=== PATIENT | male | born 1975 | race Caucasian/White ===

== ENCOUNTER 2019-09-16 07:15 | Emergency (ER) | payer SELFPAY ==
--- NOTE | ~2019-09-16 | CT_ITS ---
EXAMINATION: CT abdomen pelvis w con EXAM DATE: 09/16/2019 08:57 INDICATION: Nausea, upper abdominal pain. TECHNIQUE: Spiral CT of the abdomen and pelvis was performed following intravenous injection of 100 m L Omnipaque 350. Axial, coronal and sagittal images were reviewed. The dose-length product (DLP) fo r this examination was 353.42 mGy-cm. The exposure was tailored according to patient size (auto mA e xposure control), and iterative reconstruction (ASIR) was used as additional dose reduction technique . Comparison is made to prior examination from 11/15/2016. FINDINGS: There is a left adrenal nodule measuring 2.1 x 1.6 cm (was 1.8 x 1.3 cm in 2017, moderate s tenosis of the growth). Statistically most likely adenoma but not meeting density criteria on this ex amination. The liver, spleen, adrenal glands and pancreas are otherwise unremarkable. Gallbladder i s unremarkable. No biliary obstruction. Portal and splenic veins are patent. Kidneys enhance symme trically. There is no hydronephrosis. The prostate is unremarkable. The bladder is unremarkable. There is no retroperitoneal or pelvic lymphadenopathy. The appendix is normal. The stomach and small bowel are unremarkable. There is expected amount of c olonic stool. No free intraperitoneal gas. The heart is normal in size. There are no pericardial or pleural effusions. The lung bases are unremarkable. There are no osteoblastic or osteolytic les ions identified. IMPRESSION: 1. No acute intra-abdominal findings. 2. Left adrenal nodule, modest interval increase compared to 2017. Statistically most likely adenoma but consider follow-up nonemergent MR abdomen. Reviewed, dictated and finalized at location B. IMPRESSION: 1. No acute intra-abdominal findings. 2. Left adrenal nodule, modest interval increase compared to 2017. Statistical ly most likely adenoma but consider follow-up nonemergent MR abdomen.
[2019-09-16 07:19] VITALS: BP 112/68; PULSE 80; RESP 16; TEMP 36.8; O2SAT 100
[2019-09-16 07:40] LABS: Basophils Percent Auto 0.7 % (0.2-1.2); Eosinophils Percent Auto 0.5 % (0-4.4); Hemoglobin 15.7 g/dL (14.0-18.0); Immature Granulocyte Absolute 0.03 K/mm3 (0.00-0.031); Immature Granulocyte Percent A 0.5 % (0-0.5); Lymphocytes Absolute Auto 1.17 K/mm3 (0.9-3.2); Lymphocytes Percent Auto 20.6 % (18.3-44.2); Mean Corpuscular HGB Conc 34.1 g/dl (32-36); Mean Corpuscular Hemoglobin 29.6 pg (26-34); Mean Corpuscular Volume 86.8 fl (80-100); Mean Platelet Volume 10.1 fl (7.4-10.4); Monocytes Absolute Auto 0.8 K/mm3 (0.1-0.6); Monocytes Percent Auto 13.5 % (2.6-8.5); Neutrophils Absolute Auto 3.7 K/mm3 (1.3-6.7); Neutrophils Percent Auto 64.2 % (45.5-73.1); Platelet Count Result 151 k/mm3 (150-375); Red Cell Distribution Width 13.2 % (11.5-14.5); White Blood Count 5.7 K/mm3 (4.5-10.0)
[2019-09-16 07:51] LABS: Alanine Aminotransferase 32 U/L (4-50); Albumin Level 4.2 g/dL (3.5-5.1); Alkaline Phosphatase 78 U/L (38-126); Aspartate Amino Transferase 33 U/L (17-59); Bilirubin,Total 0.5 mg/dL (0.2-1.3); Blood Urea Nitrogen 11 mg/dL (9-20); Calcium 9.2 mg/dL (8.4-10.2); Carbon Dioxide 28 mmol/L (22-30); Chloride 102 mmol/L (98-107); Estimated CRCL calculation 115 ml/min; Estimated Glomerular Filt Rate > 60; Glucose 111 mg/dL (75-110); Lipase 59 U/L (23-300); Potassium 3.7 mmol/L (3.4-5.0); Sodium 134 mmol/L (137-145)
[2019-09-16] MEDS: ONDANSETRON INJ 4 MG/2 ML VIAL IV PUSH (08:31)
[2019-09-16] MEDS: MORPHINE SULFATE 4 MG/ML INJ IV PUSH (08:32)
[2019-09-16] MEDS: SODIUM CHLORIDE 0.9% IV 1,000 ML 999 ML IV CONT (08:32)
[2019-09-16 08:40] LABS: Add Urine Microscopic? YES; Appearance Urine Clear (Clear); Bacteria Urine Trace /hpf; Bilirubin Urine Negative (Negative); Blood Urine Negative (Negative); Color Urine Yellow (Yellow); Glucose Urine UA Negative (Negative); Ketones Urine Trace mg/dL (Negative); Leukocyte Esterase Ur Negative LEU/UL (Negative); Mucus Urine Heavy /lpf; Nitrate Urine Negative (Negative); Protein Urine 1+ mg/dL (Negative); RBC Urine 0-2 /hpf (0-2); Squamous Epithelial Cell Urine Rare /hpf (Few); WBC Urine 0-3 /hpf
[2019-09-16 08:42] LABS: Specific Grav Ur 1.031 (1.001-1.035)
[2019-09-16] MEDS: BELLADONNA ALK/PHENOB ELIX 10 ML, MAG HYDROX/ALUMINUM HYD/SIMETH 30 ML, LIDOCAINE HCL 2... PO (09:40)
--- NOTE | 2019-09-16 10:20 | ED.NAVMDI ---
HPI - Nausea/Vomiting/Diarrhea General Chief complaint: Nausea/Vomiting/Diarrhea Stated complaint: N/V/D ABD PAIN Time Seen by Provider: 09/16/19 07:42 History of Present Illness HPI Narrative: Patient is a 43-year-old male who presents the ER with epigastric discomfort for the last 4 days. Cramping in nature. Associated with burning going into his chest. Mild nausea no vomiting. +Diarrhea. Has not found any aggravating alleviating factors but has not been eating due to discomfort. No history of biliary disease. Denies significant alcohol ingestion to cause pain. Related Data Allergies Allergy/AdvReac Type Severity Reaction Status Date / Time acetaminophen AdvReac Intermediate ABD. PAIN Verified 09/16/19 07:26 Review of Systems Review of Systems: All systems reviewed & are unremarkable except as noted in HPI and below Constitutional: Constitutional: Denies chills, Denies fever(s) and Reports weakness ENT: Denies nasal congestion and Denies sore throat Cardiovascular: Cardiovascular: Denies chest pain and Denies radiating jaw, neck or arm pain Gastrointestinal: Gastrointestinal: Reports abdominal pain, Reports heartburn, Reports diarrhea, Reports nausea and Denies vomiting PMFSH Past Medical History Medical History (Updated 09/16/19 @ 10:24 by Lalito Cronin MD) No pertinent past medical history Surgical History Surgical History (Updated 09/16/19 @ 10:22 by Lalito Cronin MD) No pertinent past surgical history Social History Social History Smoking status: Never smoker Alcohol intake: current Gender identity (if verbalized by the patient): Male Exam Narrative: Exam Narrative: GENERAL: Well-appearing, well-nourished, and in no acute distress. HEAD: Normocephalic, atraumatic. ENT: Mucous membranes moist. CHEST: Clear to auscultation. No respiratory distress. HEART: Regular rate and rhythm. Normal peripheral pulses. ABDOMEN: Soft, tender palpation epigastrium with guarding, nondistended. EXTREMITIES: Normal range of motion. No edema. SKIN: Warm, dry, no rash. NEURO: Alert and oriented x3. Course Course Emergency Course: Markedly improved symptoms with GI cocktail. Unremarkable work-up. Discharge home with scheduled PPI and follow-up with PCP/GI. Vital Signs Vital signs: Vital Signs Temperature 98.2 F 09/16/19 07:19 Pulse Rate 80 09/16/19 07:19 Respiratory Rate 16 09/16/19 07:19 Blood Pressure 112/68 09/16/19 07:19 Pulse Oximetry 100 09/16/19 07:19 Temperature 98.2 F 09/16/19 07:19 Pulse Rate 80 09/16/19 07:19 Respiratory Rate 16 09/16/19 07:19 Blood Pressure 112/68 09/16/19 07:19 Pulse Oximetry 100 09/16/19 07:19 MDM - Nausea/Vomiting/Diarrhea Lab Data Result diagrams: 09/16/19 07:32 09/16/19 07:32 Labs: Lab Results 09/16/19 09/16/19 09/16/19 Range/Units 07:32 07:32 08:32 WBC 5.7 (4.5-10.0) K/mm3 RBC 5.30 (4.6-6.20) M/mm3 Hgb 15.7 (14.0-18.0) g/dL Hct 46.0 (42.0-52.0) % MCV 86.8 (80-100) fl MCH 29.6 (26-34) pg MCHC 34.1 (32-36) g/dl RDW 13.2 (11.5-14.5) % Plt Count 151 (150-375) k/mm3 MPV 10.1 (7.4-10.4) fl Immature Gran % (Auto) 0.5 (0-0.5) % Neut % (Auto) 64.2 (45.5-73.1) % Lymph % (Auto) 20.6 (18.3-44.2) % Mchenry % (Auto) 13.5 H (2.6-8.5) % Eos % (Auto) 0.5 (0-4.4) % Baso % (Auto) 0.7 (0.2-1.2) % Lymph # (Auto) 1.17 (0.9-3.2) K/mm3 Mchenry # (Auto) 0.8 H (0.1-0.6) K/mm3 Eos # (Auto) 0.0 (0-0.3) K/mm3 Baso # (Auto) 0.0 (0.0-0.1) K/mm3 Abs Immat Gran (auto) 0.03 (0.00-0.031) K/mm3 Absolute Neuts (auto) 3.7 (1.3-6.7) K/mm3 Absolute Nucleated RBC 0.0 (0.0-0.012) K/mm3 Nucleated RBC % 0.0 (0.0-0.2) % Sodium 134 L (137-145) mmol/L Potassium 3.7 (3.4-5.0) mmol/L Chloride 102 (98-107) mmol/L Carbon Dioxide 28 (22-30) mmol/L BUN 11 (9-20) mg/dL Creatinine 0.90
[2019-09-16 11:15] VITALS: BP 116/73; PULSE 88; RESP 17; O2SAT 98
== END 2019-09-16 11:16 | disposition home or self-care (01) ==
PROVIDERS: Emergency Provider Emergency Medicine
DX: K29.70 Gastritis, unspecified, without bleeding (principal); E27.9 Disorder of adrenal gland, unspecified
CPT/HCPCS: 36415; 74177; 80053; 81001; 83690; 85025; 96361; 96374; 96375; 99284; A9270; J2270; J2405; J7030; Q9967

== ENCOUNTER 2021-01-25 10:08 | Emergency (ER) | payer SELFPAY ==
[2021-01-25 10:15] VITALS: BP 152/80; PULSE 82; RESP 16; TEMP 36.5; O2SAT 100
--- NOTE | 2021-01-25 10:27 | ED.ABDPAIN ---
HPI - Abdominal Pain General Chief Complaint: Abdominal Pain Stated Complaint: ABD PAIN/CAN'T SLEEP/CHILLS/DIARRHEA Source: patient and RN notes reviewed Mode of arrival: ambulatory History of Present Illness HPI narrative: This is a 45-year-old male that presented to urgent care today with complaints of cramping diarrhea and constipation nausea with no vomiting and abdominal pain that he has been experiencing for 1 week patient notes that he was unable to sleep due to the pain. Patient has not done anything at home to relieve his symptoms he did note that he has a history of perforated bowel back in 2018 caused by alcohol and medication. He also was at [facility] back in 09/2019 and diagnosed with gastritis. He will be transferred to [facility] Dr. Oneil excepting report given to Nandini BUSTAMANTE. Patient refused transportation via EMS MD elicited complaint: abdominal pain (Right lower quadrant) Pertinent past history: gastritis and other (Perforated bowel back in 2018) Related Data Allergies Allergy/AdvReac Type Severity Reaction Status Date / Time acetaminophen AdvReac Intermediate ABD. PAIN Verified 09/16/19 07:26 Review of Systems Review of Systems: A 14 organ system Review of Systems was performed and pertinent positives included in the HPI, otherwise remaining ROS is negative. [facility] Past Medical History Medical History No pertinent past medical history Surgical History Surgical History No pertinent past surgical history Family History Family History (Updated 01/25/21 @ 10:28 by KAMALJIT Mcdaniels) Other Family history non-contributory Social History Social History Smoking status: Never smoker Alcohol intake: current Gender identity (if verbalized by the patient): Male Exam Narrative: GENERAL: This is a well-nourished, well-developed patient, in no apparent distress. HEAD: normocephalic, atraumatic. EYES: PERRL. Sclera clear/white. Vision is grossly intact. EARS: External ears normal, auditory canals clear and without drainage, TMs normal without perforation. Hearing grossly intact. NOSE: External nose normal with no obvious nasal discharge, nares without redness, no rhinorrhea. THROAT: Mucous membranes moist, posterior pharynx clear. NECK: Neck supple, non-tender without lymphadenopathy, masses or thyromegaly. CARDIOVASCULAR: Regular rate and rhythm without murmurs, gallops, or rubs. RESPIRATORY: Clear to auscultation. Breath sounds equal bilaterally. No wheezes, rales, or rhonchi. GASTROINTESTINAL: Abdomen soft, tenderness to the right lower quadrant nondistended. Bowel sounds are active. No hepato-splenomegaly, or palpable masses. With guarding the left lower quadrant. SKIN: warm, intact with no suspicious lesions or rash, good texture and turgor. NEURO: awake, alert, and oriented to person, place and time. There were no obvious focal neurologic abnormalities. Steady gait EXTREMITIES: Normal range of motion. No edema. No calf tenderness. Negative Homans sign bilaterally. BACK: Nontender without deformity or crepitance. No flank tenderness. Course Course Emergency Course: Patient will be sent to [place] ED accepting physician Dr. Oneil Vital Signs Vital signs: Vital Signs Temperature 97.7 F 01/25/21 10:15 Pulse Rate 82 01/25/21 10:15 Respiratory Rate 16 01/25/21 10:15 Blood Pressure 152/80 H 01/25/21 10:15 Pulse Oximetry 100 01/25/21 10:15 Temperature 97.7 F 01/25/21 10:15 Pulse Rate 82 01/25/21 10:15 Respiratory Rate 16 01/25/21 10:15 Blood Pressure 152/80 H 01/25/21 10:15 Pulse Oximetry 100 01/25/21 10:15 Transfer Transfered to: [place] Accepting physician: Dr. Oneil MDM - Abdominal Pain Differential Diagnosis Differential diagnosis: Likely abdominal pain, acute a
== END 2021-01-25 10:32 | disposition short-term general hospital (02) ==
PROVIDERS: Emergency Provider Nurse Practitioner
DX: R10.31 Right lower quadrant pain (principal)
CPT/HCPCS: 99212; G0463

== ENCOUNTER 2021-01-25 10:46 | Emergency (ER) | payer SELFPAY ==
--- NOTE | ~2021-01-25 | CT_ITS ---
EXAMINATION: CT abdomen pelvis w con INDICATION: Abdominal pain, history of perforated ulcer TECHNIQUE: Computed tomographic images of the abdomen and pelvis were obtained after the administrati on of 100 cc of Omnipaque 350 intravenous contrast. The dose-length product (DLP) was 603.53 mGy-cm. Automated exposure control and iterative reconstruction technique were employed. COMPARISON: 09/16/2019 FINDINGS: The lung bases are clear. The heart size is normal. A stable 6 mm lesion of the right hepat ic lobe with peripheral enhancement likely reflects a hemangioma. The spleen, pancreas, gallbladder, and right adrenal gland are normal. A stable 2 cm mass of the left adrenal gland likely reflects an a denoma. The kidneys are unremarkable. No pathologically enlarged abdominal or pelvic lymph nodes are identified. There is no free intraperitoneal gas or evidence of bowel obstruction. The appendix is no rmal. There are multiple tiny fat-containing midline epigastric hernias. IMPRESSION: 1. No CT correlate for the patient's symptoms. Reviewed, dictated and finalized at location B. [employer]
[2021-01-25 11:09] VITALS: BP 123/78; PULSE 77; RESP 18; TEMP 36.7; O2SAT 100
[2021-01-25 11:27] LABS: Basophils Absolute Auto 0.1 K/mm3 (0.0-0.1); Basophils Percent Auto 0.5 % (0.2-1.2); Eosinophils Absolute Auto 0.1 K/mm3 (0-0.3); Eosinophils Percent Auto 0.5 % (0-4.4); Hematocrit 43.5 % (42.0-52.0); Hemoglobin 15.1 g/dL (14.0-18.0); Immature Granulocyte Absolute 0.04 K/mm3 (0.00-0.031); Immature Granulocyte Percent A 0.3 % (0-0.5); Lymphocytes Absolute Auto 1.82 K/mm3 (0.9-3.2); Lymphocytes Percent Auto 13.4 % (18.3-44.2); Mean Corpuscular HGB Conc 34.7 g/dl (32-36); Mean Corpuscular Hemoglobin 30.4 pg (26-34); Mean Corpuscular Volume 87.7 fl (80-100); Mean Platelet Volume 10.4 fl (7.4-10.4); Monocytes Absolute Auto 1.1 K/mm3 (0.1-0.6); Monocytes Percent Auto 7.8 % (2.6-8.5); Neutrophils Absolute Auto 10.6 K/mm3 (1.3-6.7); Neutrophils Percent Auto 77.5 % (45.5-73.1); Platelet Count Result 214 k/mm3 (150-375); Red Blood Count 4.96 M/mm3 (4.6-6.20); White Blood Count 13.6 K/mm3 (4.5-10.0)
[2021-01-25 11:38] LABS: Alanine Aminotransferase 40 U/L (4-50); Albumin Level 4.7 g/dL (3.5-5.1); Alkaline Phosphatase 70 U/L (38-126); Anion Gap 7 mmol/L (8-16); Aspartate Amino Transferase 30 U/L (17-59); Bilirubin,Total 0.6 mg/dL (0.2-1.3); Blood Urea Nitrogen 19 mg/dL (9-20); Calcium 9.4 mg/dL (8.4-10.2); Carbon Dioxide 29 mmol/L (22-30); Chloride 103 mmol/L (98-107); Estimated CRCL calculation 113 ml/min; Estimated Glomerular Filt Rate > 60; Glucose 107 mg/dL (65-110); Lipase 63 U/L (23-300); Potassium 4.3 mmol/L (3.4-5.0); Sodium 139 mmol/L (137-145)
--- NOTE | 2021-01-25 12:15 | PC.NURSE ---
Pt off floor to CT scan
--- NOTE | 2021-01-25 12:24 | ED.ABDPAIN ---
HPI - Abdominal Pain General Chief Complaint: Abdominal Pain Stated Complaint: abd pain Time Seen by Provider: 01/25/21 11:30 Source: patient History of Present Illness HPI narrative: Patient presents with abdominal pain. Reports he had abdominal pain for the past 10 days getting progressively worse associated with nausea constipation and diarrhea. Pain is crampy, constant, worse in the upper abdomen, no radiation, no clear aggravating or alleviating factors. He was seen in urgent care and referred to the ER for further evaluation. He is unsure if he has had fevers he does report hot flashes. Denies known sick contacts no recent antibiotics. Related Data Allergies Allergy/AdvReac Type Severity Reaction Status Date / Time acetaminophen AdvReac Intermediate ABD. PAIN Verified 01/25/21 11:33 Review of Systems Review of Systems: CONSTITUTIONAL: Denies fever, chills, or sweats. EYES: Denies visual changes, redness, or discharge. ENT: Denies rhinorrhea, congestion, sore throat, or otalgia. CARDIOVASCULAR: Denies chest pain, palpitations, or edema. RESPIRATORY: Denies cough or dyspnea. GASTROINTESTINAL: Reports abdominal pain nausea constipation and diarrhea GENITOURINARY: Denies dysuria or hematuria. SKIN: Denies rash or itching. MUSCULOSKELETAL: Denies back pain, joint pain, or myalgia. NEUROLOGIC: Denies headache, numbness, dizziness, or weakness. PSYCHIATRIC: Denies anxiety or depression. All systems reviewed & are unremarkable except as noted in HPI and below PMFSH Past Medical History Medical History No pertinent past medical history Surgical History Surgical History No pertinent past surgical history Family History Family History Other Family history non-contributory Social History Social History Smoking status: Never smoker Alcohol intake: current Gender identity (if verbalized by the patient): Male Exam Narrative: GENERAL: Well-appearing, well-nourished, and in no acute distress. HEAD: Normocephalic, atraumatic. EYES: PERRLA and EOMI. ENT: Nares clear, no rhinorrhea or epistaxis. Mucous membranes moist. NECK: Supple. No masses. No JVD CHEST: Clear to auscultation. No respiratory distress. No wheezes rales or rhonchi HEART: Regular rate and rhythm. No murmur heard. Normal peripheral pulses. ABDOMEN: Moderate tenderness in the epigastric area without rebound or guarding soft, nondistended, normal active bowel sounds. EXTREMITIES: Normal range of motion. No edema. SKIN: Warm, dry, no rash. NEURO: No focal deficits. Alert and oriented x3. PSYCH: Normal mood and affect. Course Reevaluation(s) Reevaluation #1: Patient reports feeling improved results and plan reviewed with patient. Patient comfortable with outpatient plan Date: 01/25/21 Time: 13:09 Vital Signs Vital signs: Vital Signs Temperature 36.7 C 01/25/21 11:09 Pulse Rate 77 01/25/21 11:09 Respiratory Rate 18 01/25/21 11:09 Blood Pressure 123/78 01/25/21 11:09 Pulse Oximetry 100 01/25/21 11:09 Temperature 36.6 C 01/25/21 13:29 Pulse Rate 74 01/25/21 13:29 Respiratory Rate 16 01/25/21 13:29 Blood Pressure 132/91 H 01/25/21 13:29 Pulse Oximetry 98 01/25/21 13:29 MDM - Abdominal Pain MDM Narrative Medical decision making narrative: H&P as above, vss, pt looks clinically well, exam with epigastric pain, labs with elevated white count otherwise clinically unremarkable, img unremarkable for acute process, additional labs/img considered, symptomatic relief available as needed, on reevaluation pt continues to looks clinically well. Suspect gastroenteritis, dns severe sepsis, bowel obstruction, perforation, appendicitis, pancreatitis. plan to tx/monitor as op w/ pcm f/u findings/plan discussed with p
[2021-01-25 12:25] LABS: Add Urine Microscopic? YES; Appearance Urine Clear (Clear); Bacteria Urine Trace /hpf; Bilirubin Urine Negative (Negative); Blood Urine Negative (Negative); Color Urine Yellow (Yellow); Glucose Urine UA Negative (Negative); Ketones Urine Negative (Negative); Leukocyte Esterase Ur Negative LEU/UL (Negative); Mucus Urine Heavy /lpf; Nitrate Urine Negative (Negative); Protein Urine 1+ mg/dL (Negative); RBC Urine 0-2 /hpf (0-2); Squamous Epithelial Cell Urine Rare /hpf (Few); Urobilinogen Urine Negative mg/dL (<2.0); WBC Urine 0-3 /hpf
[2021-01-25] MEDS: LIDOCAINE HCL 2% VISC SOLN 15 ML UDC 20 ML PO (12:27)
[2021-01-25] MEDS: SODIUM CHLORIDE 0.9% IV 1,000 ML 999 ML IV CONT (12:27)
[2021-01-25] MEDS: ONDANSETRON INJ 4 MG/2 ML VIAL IV PUSH (12:27)
[2021-01-25] MEDS: MAG HYDROX/AL HYDROX/SIMETH 30 ML UDC PO (12:27)
[2021-01-25 12:47] LABS: Specific Grav Ur 1.031 (1.001-1.035)
[2021-01-25 13:29] VITALS: BP 132/91; PULSE 74; RESP 16; TEMP 36.6; O2SAT 98
== END 2021-01-25 13:30 | disposition home or self-care (01) ==
PROVIDERS: Emergency Provider Emergency Medicine
DX: R10.9 Unspecified abdominal pain (principal); R19.7 Diarrhea, unspecified; R11.0 Nausea
CPT/HCPCS: 36415; 74177; 80053; 81001; 83690; 85025; 96361; 96374; 99284; A9270; J2405; J7030; Q9967

== ENCOUNTER 2023-10-25 20:47 | Emergency (ER) | payer BC, SELFPAY ==
--- NOTE | ~2023-10-25 | XR_ITS ---
XR shoulder LT min 2V Ordering provider: Nandini Bryant PA-C History: . injured shoulder sliding into base this evening . Comparison: None. FINDINGS: BONES: No acute fracture or dislocation. Lucency is seen adjacent to the coronoid process in the scap meron. Follow-up advised. JOINT SPACES: The acromioclavicular joint is normal. The glenohumeral joint is normal. SOFT TISSUES: Normal. IMPRESSION: No acute osseous abnormality left shoulder. Lucency seen in the scapula. This is most likely cyst. Follow-up advised. Reviewed, dictated and finalized at location A.
[2023-10-25 21:20] VITALS: BP 139/79; PULSE 88; RESP 20; TEMP 36.9; O2SAT 98
--- NOTE | 2023-10-25 22:00 | PC.NURSE ---
ERP seeing and evaluating patient in triage.
[2023-10-25] MEDS: diazePAM (*CRX) 5 MG TABLET PO (22:09)
--- NOTE | 2023-10-25 22:13 | ED.UPPEXIN ---
HPI - Extremity Injury (Upper) General Chief Complaint: Extremity Injury, Upper Stated Complaint: Left shoulder pain/dislocation? Time Seen by Provider: 10/25/23 22:02 History of Present Illness HPI narrative: patient dove for a ball, missed, landed hard on his left shoulder and thinks that he may have popped it out of place then back in. Reporting pain with movement Related Data Allergies Allergy/AdvReac Type Severity Reaction Status Date / Time acetaminophen AdvReac Intermediate ABD. PAIN Verified 01/25/21 11:33 Review of Systems Review of Systems: All systems reviewed & are unremarkable except as noted in HPI and below PMFSH Past Medical History Medical History No pertinent past medical history Surgical History Surgical History No pertinent past surgical history Family History Family History Other Family history non-contributory Social History Social History Smoking status: Never smoker Alcohol intake: current Gender identity (if verbalized by the patient): Male Exam Narrative: EXAMINATION OF ORGAN SYSTEMS/BODY AREAS: Constitutional: Vital signs per nursing GENERAL:[No acute distress, non-toxic appearing.] HEAD: Normal with no signs of head trauma. EYES: EOMI, conjunctiva normal ENT: Hearing grossly intact LUNGS: Nonlabored breathing. HEART: [Regular rate and rhythm], normal radial pulse ABD: [Soft], [nontender to palpation] EXT: range of motion diminished due to pain but patient able to extend his left arm/shoulder at least 90 degrees actively. TTP anterior shoulder, no obvious deformity NEURO: [Alert and oriented x 3. No gross focal sensory or strength deficits.] PSYCH: Normal affect Course Vital Signs Vital signs: Vital Signs Temperature 98.5 F 10/25/23 21:20 Pulse Rate 88 10/25/23 21:20 Respiratory Rate 20 10/25/23 21:20 Blood Pressure 139/79 10/25/23 21:20 Pulse Oximetry 98 10/25/23 21:20 Oxygen Delivery Room Air 10/25/23 21:20 Temperature 98.5 F 10/25/23 21:20 Pulse Rate 88 10/25/23 21:20 Respiratory Rate 20 10/25/23 21:20 Blood Pressure 139/79 10/25/23 21:20 Pulse Oximetry 98 10/25/23 21:20 Oxygen Delivery Room Air 10/25/23 21:20 MDM - Extremity Injury (Upper) MDM Narrative Medical decision making narrative: patient presents with left shoulder injury, on exam he is neurovascularly intact with no obvious deformity however he does have tenderness to palpation to the anterior shoulder, some pain with range of motion, x-ray thankfully negative for acute dislocation or fracture. A sling given for comfort no I did warn him that he should stop using it after the 1st couple of days so that he does not develop a frozen shoulder, he did appear to have some muscle spasm to his shoulder so I did give a small dose of muscle relaxant and will give him a prescription for this. He can continue taking ibuprofen at home. Stable for discharge and I have given follow-up instructions to Orthopedics as I let him know he may need an MRI if this shoulder continues to give him issues in the next few weeks. Patient and partner at bedside agreeable to this plan Discharge Plan Discharge Clinical Impression: Shoulder sprain Patient Disposition: Home, Self-Care Condition: Stable Instructions: Antibiotic Form, Shoulder Sprain (ED) Additional Instructions: Please follow up with the orthopedic surgeon; if you continue to have pain or issues with your shoulder, you may need further imaging and treatment such as physical therapy for your shoulder. You can always return for any further issues. Prescriptions: New methocarbamol 750 mg tablet 750 mg PO TID PRN (Reason: muscle spasm) Qty: 30 0RF No Action ondanse
== END 2023-10-25 22:20 | disposition home or self-care (01) ==
LOC: ANHED 22:06
PROVIDERS: Emergency Provider Emergency Medicine; PCP Emergency Medicine
DX: S43.402A Unspecified sprain of left shoulder joint, initial encounter (principal); W18.39XA Other fall on same level, initial encounter; Y93.64 Activity, baseball
CPT/HCPCS: 73030; 99283; A4565; A9270

== ENCOUNTER 2023-11-12 10:51 | Outpatient (CLI) | payer BC, SELFPAY ==
--- NOTE | ~2023-11-12 | MR_ITS ---
MRI of the left shoulder Technique: Axial proton-density fat-sat images, coronal proton density fat-sat and T2 fat-sat images, and sagittal T1-weighted and T2 fat-sat images were acquired. Clinical History: Pain, subscapularis tear Findings: There is mild AC joint degenerative change. Coracoclavicular, coracoacromial, and coracohum eral ligaments are intact. There is mild supraspinatus and infraspinatus tendinosis, without partial or full-thickness tear of t hese tendons. There is complete tear of the mid to distal subscapularis tendon. There is medial dislo cation of the biceps tendon from the bicipital groove. No definite labral tear seen. Inferior glenohumeral ligament is intact. There is small glenohumeral joint effusion. There is fluid distention of the subacromial/subdeltoid bursa. No degenerative change of the glenohumeral joint. No muscle atrophy. There is mild edematous change of the subscapularis muscle belly. Impression: Complete tear of the subscapularis tendon at its mid to distal portion with associated medial disloca tion of the biceps tendon from the bicipital groove. Reactive soft tissue edema and/or subacromial/subdeltoid bursitis. Mild AC joint degenerative change. Reviewed, dictated and finalized at [facility]. Impression: Complete tear of the subscapularis tendon at its mid to distal portion with ass ociated medial dislocation of the biceps tendon from the bicipital groove. Reactive soft tissue edema and/or subacromial/subdeltoid bursitis. Mild AC joint degenerative change.
== END 2023-11-12 10:52 ==
LOC: GOSHIMG 10:53
PROVIDERS: PCP Emergency Medicine; Visit Provider Orthopaedic Surgery
DX: M75.122 Complete rotator cuff tear or rupture of left shoulder, not specified as traumatic (principal); M19.012 Primary osteoarthritis, left shoulder
CPT/HCPCS: 73221

== ENCOUNTER 2024-01-24 01:45 | Day surgery (SDC) | payer BC, SELFPAY ==
--- NOTE | 2024-01-15 16:38 | SUR.PREOP ---
Report to the Outpatient Waiting Room, entrance under the green pavilion located off [facility], at time _0600_ on date _01/24/2024_. Planned Procedure Time: _0730_.? Time changes happen often and if your time is changed the preop area will call you the afternoon before. - You and your visitor will be asked to self-screen and do not enter if you have any COVID symptoms. Please call surgeon if you need to reschedule. - A mask is optional within the hospital at this time. Patients may have clear liquids (water, carbonated beverages, clear teas, apple juice) until 3 hours (0430) prior to surgery with a maximum of 20 ounces. - No food from midnight until time of surgery and no smoking - Infants may have breast milk until 4 hours before surgery, formula 6 hours prior to surgery. - Children will be allowed to drink immediately following surgery.? If applicable, please bring a bottle or sippy cup to assist with drinking. Juice, water, soda, and popsicles are readily available.? For infants on formula, please bring formula the day of surgery.? Pacifiers are allowed. Take only the following medications with a SIP of water on the morning of surgery: _Tylenol if needed_ DO NOT STOP ANY OF YOUR OTHER PRESCRIPTION MEDICATIONS PRIOR TO SURGERY EXCEPT THE FOLLOWING Medications to discontinue per physician __Aleve per Dr. Marquez__ Date to take last dose_Per Dr. Marquez_ Please no make-up, nail israeli, hairspray, perfume, deodorant, or body powder the day of surgery.? No jewelry (including any body piercings) or valuables the day of surgery, leave them at home.? Please take a shower or bath the night before, or the morning of, surgery with an antibacterial soap.? Wear comfortable, loose fitting clothing.? Children are encouraged to wear pajamas. - Jewelry must be removed prior to entering the operating room.? Rings and piercings that are not removed may be cut off. - The hospital will not accept responsibility for valuables.? - Please leave all valuables, including medications, at home the day of surgery. If you are going home after surgery, a licensed lease purchase driver must drive you home.? - NO public transportation without another adult if you receive anesthesia. - We recommend that an adult stay with you for 24 hours following discharge. - We also recommend that you do not drive, make important decision, drink alcoholic beverages, or take any drugs that were not prescribed by your health care provider for at least 24 hours after your discharge time. For Pediatric surgeries, we recommend two adults accompany the child home. Follow any additional instructions given to you from your surgeon. Telephone instructions given to _Sarbjit Anthony (Scott)_and asked if any additional questions and then verbalized understanding. Patient advised to call surgeon office or pre surgery nurse liaison [phone] if any additional questions.
[2024-01-15 17:00] VITALS: BMI 28.0
[2024-01-24] VITALS (10 sets, daily range): BP systolic 125–145; BP diastolic 75–88; PULSE 63–81; RESP 14–16; TEMP 36.4; O2SAT 95–99; BMI 27.4
[2024-01-24] MEDS: LACTATED RINGERS 1,000 ML 30 ML IV CONT (06:49)
--- NOTE | 2024-01-24 07:19 | PM.IMHP ---
H&P: HPI History of Present Illness Date/Time: 01/24/24 07:19 Chief Complaint: Skin lesions left scalp, right arm, and mid back. Narrative: Sarbjit is a 47 y/o male who presents to the office at the request of Khang Martinez MD for evaluation of a lump on back. Patient reports 3 lumps, one on arm, scalp and back. He denies any pain or drainage, but states they are increasing in size. Review of Systems Review of Systems: The remainder of the review of systems to include constitutional, HEENT, cardiovascular, respiratory, GI, , integumentary, musculoskeletal, endocrine, immunologic, hematologic, psychiatric, and neurologic are all negative except for which is mentioned above in the HPI. [facility] Past Medical History Medical History ADHD Elbow fracture, left Fx phalanges, hand-closed No pertinent past medical history Perforated bowel Surgical History Surgical History History of colon resection Family History Family History Other Family history non-contributory Social History Social History Smoking status: Former smoker Second hand tobacco smoke exposure: Yes Smoking end date: 03/18/18 Alcohol intake: current Drinks per week: 4 Substance use: current Substance use type: marijuana Other substance usage details: daily Do You Feel Safe in your Home?: Yes Lack of Transportation: No Lack of Food: Never True Current Housing: I Have Housing Concerned About Future Housing: No Difficulty Paying Gas/Electric Bills: Decline to Answer Difficulty Paying for Meds: Decline to Answer Currently Unemployed: No Education: High School Diploma/GED Difficulty w/ Childcare or Family Care: No Living arrangements: with family Additional living arrangements comments: with spouse Occupation/Education: occupation 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 Gender identity (if verbalized by the patient): Male Spiritual care concerns: No Meds Home Medications and Allergies Home Medications Medication Instructions Recorded Confirmed Type Aleve 220 mg PO Q8-12H 01/15/24 01/15/24 History acetaminophen 500 mg PO Q4-6H 01/15/24 01/15/24 History dextroamphetamine-amphetamine 20 20 mg PO BID 01/15/24 01/15/24 History mg tablet Allergies Allergy/AdvReac Type Severity Reaction Status Date / Time No Known Allergies Allergy Verified 01/15/24 17:00 Vital Signs Vital Signs - 24 hr 01/24/24 06:46 Temperature 36.4 C Pulse Rate 81 Blood Pressure 125/83 Pulse Oximetry 99 Oxygen Delivery Room Air Exam Const: General: comfortable and no acute distress HENMT: Ears: TM's normal bilaterally Face/Nose/Sinus: Normal nares present Mouth: Yes moist mucous membranes Eyes: General: appearance normal, both eyes and all related structures Sclera: sclerae normal Pupils: Equal, round and reactive pupils present EOM: EOMs intact bilaterally Neck: Neck: supple and no JVD Resp: Effort & Inspection: normal respiratory effort Auscultation: clear to auscultation bilaterally Cardio: Rate: regular rate Rhythm: regular rhythm GI: GI Palp: Yes Soft to palpation, No Firmness to palpation present (GI), No Tenderness to palpation present (GI), No Guarding due to palpation present (GI) and No Hernia present Skin: Other: 1.5cm x 1cm right medial elbow subcutaneous mass, well circumscribed, non fixed. 0.5cm x 0.4cm irritated skin lesion left occipital. 1.2cm x 0.8cm mid back skin lesion, slightly pigmented without ulceration. Neuro: General: gait normal Speech: normal speech Motor exam (neuro): 5/5 motor strength present throughout Sensory Exam: normal sensation Extrem: General: normal to inspection Psych: Mental Status: mental status grossly normal Affect: normal affect Assessment and Plan Assessment and plan (1) Back skin lesion: Code(s): L98.9 - Disorder of the skin and subcutaneous tissue, unspecified Status: Acute Assessment and Plan: I have reviewed office notes from Khang Martinez MD prior to patient visit. Clinical exam reveals 3 lumps to be excised. I recommend an excision of skin lesion left occipital scalp, excision of right elbow subcutaneous mass and excision of mid back skin lesion to be done under local anesthesia as an outpatient. Procedure risks, benefits, indications, and expected outcomes were discussed with the patient in detail. All questions were answered. (2) Subcutaneous mass of right upper extremity: Code(s): R22.31 - Localized swelling, mass and lump, right upper limb Status: Acute Assessment and Plan: see above (3) Skin lesion of scalp: Code(s): L98.9 - Disorder of the skin and subcutaneous tissue, unspecified Status: Acute Assessment and Plan: see above
--- NOTE | 2024-01-24 07:23 | WPDHPUPDATE1 ---
History and Physical Update Update Date/Time: 01/24/24 07:23 History and Physical has been reviewed, including an updated exam of the patient. There are NO changes in the patient's condition. Risks, benefits, and alternatives have been discussed and questions answered. Patient agrees to proceed with procedure.
[2024-01-24] MEDS: BUPivacaine HCL 0.5% PF 30 ML VIAL INFILTRATE (07:29)
[2024-01-24] MEDS: LIDO 1%/EPINEPHRINE 1:100,000 50 ML VIAL 30 ML INFILTRATE (07:29)
[2024-01-24] MEDS: ceFAZolin 2 GM/D5W 50 ML 2 GM/50 ML BAG IVPB (07:41)
[2024-01-24] MEDS: NEOMYCIN/POLYMYXIN/BACITRACIN OINTMENT 15 GM TUBE 1 APPLIC TOPICAL (08:22)
--- NOTE | 2024-01-24 09:06 | P.OPB_ITS ---
Procedure Note - Brief Procedure Note - Brief Date of procedure: 01/24/24 Left ccipital scalp skin lesion, rt upper arm subcutaneous mass, mid back skin lesion Post-op diagnosis: Same Procedure performed: Excision of left upper arm sebaceous cyst with 2.5cm intermediate layered wound closure, excision of left occipital scalp skin lesion with 2.5cm simple wound closure, and excision of mid back skin lesion with 3cm intermediate layered w ound closure. Surgeon: Chris Marquez MD Anesthesia: local Estimated blood loss (mL): 5 Drains: No Packing: No Pathology: Yes (Sebaceous cyst and skin lesions x2 sent to pathology) Complications: No immediate complications Condition: Stable Disposition: Same day
--- NOTE | 2024-01-24 16:25 | P.OP_ITS ---
Procedure Note - Detailed Date of Procedure 01/24/24 Pre-op Diagnosis Right upper arm subcutaneous mass, left occipital scalp skin lesion and mid back skin lesion. Post-op Diagnosis Other ( Right upper arm sebaceous cyst left occipital scalp skin lesion, in mid back skin lesion.) Procedure Performed Excision right upper arm sebaceous cyst with 2.5cm intermediate layered wound closure. ( cyst= [id number] ) Excision of left occipital scalp skin lesion with 2.5cm simple wound closure. ( 0.8x0.7cm ) Excision of mid back skin lesion with 3cm intermediate layered wound closure. ( 1.5x1cm ) Surgeon Chris Marquez MD Anesthesia Local Indications patient is a 48-year-old male presented with slowly enlarging subcutaneous mass in his right upper arm as well as enlarging skin lesion on his mid back and his left occipital scalp. He presents for excision of all of these lesions. Findings The right upper arm mass turned out to be a patient's cyst rather than a lipoma. The whole wall was excised. The other 2 skin lesions appeared to be wart like benign skin lesions. Description of Procedure After informed consent was obtained patient brought to the operating room was placed supine on operating table. The area of the right upper inner arm region was then prepped and draped usual sterile fashion. A time-out was then performed correctly identifying the patient as well as procedure to be perf ormed. Site marking was verified. I then anesthetized the area around the right upper arm subcutaneous mass with approximate 10cc of the anesthetic mixture consisting 1% lidocaine and 0.5% Marcaine in a 50 50 mixture. Once adequate anesthesia had been achieved then made a transverse incision with a scalpel down through the dermis of the skin. I encountered wall to a sebaceous cyst right of than a capsule to a lipoma. Seen that this was now was sebaceous cyst I then very carefully shelled out to the whole wall of the sebaceous cyst utilizing sharp tenotomy scissors. Once the cyst wall had been completely excised down I then passed off table sent to pathology for examination. It measured [id number]. I achieved hemostasis in the incision electrocautery. Then close incision utilizing interrupted 3-0 Vicryl sutures in subcutaneous tissues. This was then followed by a running subcuticular 4 Monocryl suture to approximate the skin edges. The incision was then cleaned and then skin glue was applied. I then turned my attention towards excising off the left occipital scalp skin lesion. This area was prepped and draped in usual sterile fashion. Site marking was again confirmed. I used the same local anesthetic mixture to anesthetize around the skin lesion. Approximate 10cc of the mixture was used. After adequate anesthesia was administered I then made a transverse incision in an elliptical fashion to completely excise out the skin lesion with at least a 1mm margin circumferentially around the lesion. A carried the incision deeply down through the scalp. Completely excised off the skin lesion on the scalp with the whole skin lesion in the ellipse of tissue. The lesion measured approximately 0.8x0.7cm. It was sent to pathology for examination. I then achieved stasis in incision using electrocautery. I then irrigated sterile saline solution hemostasis was good. I then close incision utilizing a running and locking 3-0 Prolene suture and the skin edges of the scalp approximated easily without any tension. There was then cleaned and then antibiotic ointment was applied. lastly excised off the skin lesion on the midback region. The patient was then turned onto his stomach under his own power. The area the mid back was then prepped and draped usual sterile fashion. Site marking was again confirmed . The same local anesthetic mixture was injected around the skin lesion for local anesthetic effect. Approximate 10cc was used. Once adequate anesthesia had been achieved I made an oblique elliptical incision to completely encompass the edges of the skin lesion. I carried the incision deeply down through the dermis of the skin of the back to the underlying subcutaneous tissues. I then completely excised out the ellipse of skin containing the skin lesion electrocautery. The skin lesion measured approximately 1.5x1cm. It was sent to pathology for examination. I then achieved to hemostasis in the wound utilized electrocautery. Then irrigated with sterile saline solution. I then close incision with multiple layers. Initially did I placed 2-0 Vicryl sutures in the deeper and middle layers of the subcutaneous tissues. This is then followed by layer interrupted 3-0 Vicryl sutures in the deep dermis. The skin edges were then approximated utilizing a running subcuticular 4 Monocryl suture. The incision was then cleaned the skin glue was applied. The length of the intermediate layered wound closure was 3cm. The patient tolerated the procedure well no complications. All sponges, needles, and instrument counts were correct at the end procedure. EBL was _5__cc. The patient was awakened and taken to recovery in stable and satisfactory condition. Implants None Estimated Blood Loss 5 Drains No Packing No Pathology Yes ( right upper arm sebaceous cyst, skin lesion on left occipital scalp, and skin lesion on midback sent to pathology) Complications No immediate complications Condition Stable Disposition Same day [facility] Billing Surgery - Charge Forward: Surgery Billing
== END 2024-01-24 09:16 | disposition home or self-care (01) ==
PROVIDERS: PCP Emergency Medicine; Visit Provider Surgery
PROC: (CPT 11401; principal; 2024-01-24 07:30)
DX: D23.5 Other benign neoplasm of skin of trunk (principal); D23.4 Other benign neoplasm of skin of scalp and neck; L72.0 Epidermal cyst; F90.9 Attention-deficit hyperactivity disorder, unspecified type; F12.90 Cannabis use, unspecified, uncomplicated; Z98.890 Other specified postprocedural states; Z90.49 Acquired absence of other specified parts of digestive tract; Z87.891 Personal history of nicotine dependence
CPT/HCPCS: 11401; 11420; 11402; 12032; 88305; A9270; J0690; J2004; J7120

== ENCOUNTER 2024-05-04 04:40 | Emergency (ER) | payer OTHER, SELFPAY ==
[2024-05-04 04:42] VITALS: BP 147/75; PULSE 91; RESP 20; TEMP 37; O2SAT 99
--- OUTSIDE RECORDS SUMMARY | 2024-05-04 04:43 | XMS_ITS | Continuity of Care Document ---
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 Role Phone Khang Martinez MD Unavailable Unavailable Allergies, Adverse Reactions, Alerts Substance Reaction Status Criticality No Known Allergies Active No Inform ation Medications Medication Instructions Dosage Effective Dates (start - stop) Status Comments Adderall 20 mg tablet take 1 tablet by o ral route every day before breakfast and 1/2 tab orally around 1 pm - Active Depo-Testosterone 100 mg/mL intramuscular oil inject 1 milliliter by intramuscular route every 2 weeks 100 MG - Active Procedures Procedure Date OFFICE/OUTPATIENT VISIT, EST OFFICE/OUTPATIENT VISIT, EST PREV VISIT, EST, AGE 40-64 OFFICE/OUTPATIENT VISIT, EST OFFICE/OUTPATIENT VISIT, EST OFFICE/OUTPATIENT VISIT, NEW Advance Directives Directive Yes / No Effective Date File Name No Information Encounters Encounter Description Practice Location Reason(s) For Visit Diagnoses Date Provider Providers Copied on Encounter OFFICE/OUTPA TIENT VISIT, EST [facility], [address] [employer] [employer] [place], [id number], [place] tel:[phone] [facility] ADD (chief complaint) polycythem ia1 (chief complaint) fatigue1 (chief complaint) PolycythemiaAttenti on and concentration deficitTesticular hypogonadismFatigue 4 Juan Quiñonez. [address] [facility] [place], [id number] , [place]. tel:[phone] [facility], [address], [place], [place], [id number], [place] tel:[phone] [facility] No Information 4 Juan Quiñonez. [address], [place], [place], [id number] , [place]. [phone] OFFICE/OUTPA TIENT VISIT, [facility], [address], [place], [place], [id number], [place] tel:[phone] [facility] polycythem ia1 (chief complaint) HLP (chief complaint) PolycythemiaMixed hyperlipidemiaFatig ue 4 Juan Quiñonez. [address], [place], [place], [address] , [place]. tel:[phone] PREV VISIT, [facility], AGE 40-64 [facility], [address], [place], [place], [id number], [place] tel:[phone] [facility] physical (chief complaint) Encounter for general adult medical exam w abnormal findingsAttention and concentration deficitSeborrheic keratosisEpidermal cystPlantar fascial fibromatosis 4 Juan Quiñonez. [address], [place], [place], [id number] , [place]. [phone] OFFICE/OUTPA TIENT VISIT, [facility], [address], [place], [place], [id number], [place] tel:[phone] [facility] ADD (chief complaint) shoulder pain1 (chief complaint) Attention and concentration deficitPain in left shoulder 4 Juan Quiñonez. [address], [place], [place], [id number] , [place]. [phone] OFFICE/OUTPA TIENT VISIT, [facility], [address], [place], [place], [address], [place] tel:[phone] [facility] ADD (chief complaint) toe fungus1 (chief complaint) gastric ulcer1 (chief complaint) Attention and concentration deficitPain in left footDermatophytic onychiaChronic or unspecified gastric ulcer with perforation 3 Juan Qui[address]onez. [address], [place], [place], [id number] , [place]. tel:[phone] Family History Family Member Type Diagnosis Age At Onset Father Problem Alive and well Mother Problem Alive and well Brother Problem Alive and well Payers Payer name Insurance type Covered green party ID Authoriza tion(s) No Information Social History Type Description Quantity Date Captured Comments Alcohol Use Details vodka 2 drinks daily Caffeine Use Details Unknown Tobacco Use Status Ex-cigarette smoker 024 Smoking Status Former smoker Sex Male Vital Signs Date / Time: Height Weight BMI Pulse Rate Blood Pressure Temperature Respiratory Rate Body Surface Area Head Circumference BMI percentile Pulse Ox Inhaled Ox 3:37 PM 76.00 in 230.40 lbs 28.0 4 kg/m eter (2) 86 /min 130/88 mm[Hg] 98.3 F 16 /min Chief Complaint And Reason For Visit From encounter dated '01/22/2024 15:34'. ADD (chief complaint). Description: Patient has ADD. Patient has inattentive type. Patient feels scatterbrained. Patient feel poor focus and difficulty completing tasks. Patient states that Adderall is helping with symptoms. Patient feels more focused. Pt feels more energy. Patient denies any headache, dry mouth, headache, chest pain. Patient denies any appetite loss. polycythemia1 (chief complaint). Description: Pt has polycythemia. Pt still on testosterone on his own without a prescription Pt denies any urinary symptoms Pt has not done repeat lab yet fatigue1 (chief complaint). Description: Pt c/o fatigue and he does snore Pt is noncompliant with sleep study Plan Of Treatment Date Type Action Status Referral Ordered: SLEEP STUDY, ATTENDED ordered Referral Ordered: Susy Odonnell -[facility] Medicine [facility] Surgery Service Providers : Warehouse Consultant (related to Plantar fascial fibromatosis) ordered Referral Referred To: Carlos Broderick [address] [place] [address], [phone] Ordered: Referrals: Carlos Broderick. Evaluate and treat ordered Referral Referred To: Susy Odonnell [address] [facility]
Mikhail In[address]z [place], [place], [phone] Ordered: Referrals: [facility] Surgery Service Providers : Warehouse Consultant. Susy Odonnell. Evaluate and treat ordered Appointment Sarbjit Anthony BOOKED History Of Present Illness Encounter Date Complaint History Of Prese nt Illness fatigue1 Pt c/o fatigue a nd he does snore Pt is noncompliant with sleep study polycythemia1 Pt has polycythe angel. Pt still on testosterone on his own without a prescription Pt denies any urinary symptoms Pt has not done repeat lab yet ADD Patient has ADD. Patient has inattentive type. Patient feels scatterbrained. Patient feel poor focus and difficulty completing tasks. Patient states that Adderall is helping with symptoms. Patient feels more focused. Pt feels more energy. Patient denies any headache, dry mouth, headache, chest pain. Patient denies any appetite loss. HLP Pt has mildly hi gh TG polycythemia1 Pt has mild poly cythemia. Pt does snore. Pt also started testosterone injection since 3 months ago on his own Pt is buying testosterone from his friend Pt did not get level checked prior to starting the injection. Pt feels chronic fatigue with poor stamina. Pt denies any urinary symptoms physical Pt needs annual physical. Pt c/o chronic left heel pain Pt denies any radiation of pain to plantar surface and he denies any numbness or tingling. pt states the pain around heel is very sharp and is worse in the morning but gets better towards later of the day. Pt denies any injury. Pt also has ADD, Pt needs adderall refilled Pt c/o a skin lesion around midback which is present for several years without any size change or pigmentation Pt denies any bleeding Pt want it removed Pt also noticed a small cystic lesion right forearm near elbow area for several months but is getting bigger and slightly tender .Pt denies any paresthesia. shoulder pain1 Pt c/o persisten t left shoulder pain for several months Pt denies any injury Pt notices pain when he tries to lift left shoulder pass 45 degree. Pt denies any neck pain or any radiculopathy. Pt denies any left arm numbness or tingling or weakness. ADD Patient has ADD. Patient has inattentive type. Patient feels scatterbrained. Patient feel poor focus and difficulty completing tasks. Patient states that Adderall is helping with symptoms. Patient feels more focused. Pt feels more energy. Patient denies any headache, dry mouth, headache, chest pain. Patient denies any appetite loss. Pt states that adderall 20 mg only last 4-5 hours and he feels poorly focused again around 2 pm gastric ulcer1 Pt has history o f perforated gastric ulcer s/p surgery many years ago. Pt denies any abd pain or GERd. toe fungus1 Pt has toenail f ungus and also chronic left heel pain Pt denies any radiation of pain to plantar surface and he denies any numbness or tingling. pt states the pain around heel is very sharp and is worse in the morning but gets better towards later of the day. Pt denies any injury. ADD Pt has been havi ng focus and concentration issue for long time. pt has difficulty completing and stay on tasks. Pt feels easily distracted. Pt has difficulty following instructions at work. 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 His child has ADD as well. His relative gave him an adderall recently to try which he took and he feels much more focused and was able to complete task much more easily Instructions Date Instruction Additional Infor karenion No Information Assessments Type Assessment Date assessment Polycythemia assessment Attention and concentration defi cit assessment Testicular hypogonadism 024 assessment Fatigue Mental Status Date Cognitive Assessment Orientation - [place] ed to time, place, person, situation.
--- OUTSIDE RECORDS SUMMARY | 2024-05-04 04:43 | XMS_ITS | Continuity of Care Document ---
Author Organization [facility] Address [address] [place] [address] Phone Care Team Providers Care Weatherization Specialist Name Role Phone Oneida Tapia PA-C Unavailable Unavailable Allergies, Adverse Reactions, Alerts Substance Reaction Status Criticality acetaminophen Cramp Active No Information Medications Medication Instructions Dosage Effective Dates (start - stop) Status Comments Keflex 500 mg capsule take 2 Capsule by oral route every 12 hours 1000 MG - Active ibuprofen 200 mg capsule take 4 Capsule by oral route every day as needed 800 MG - Active Procedures Procedure Date Admin Immun (1st only) TDAP VACCINE >7 IM Ofc/Outpt Visit, [place] [id number] Advance Directives Directive Yes / No Effective Date File Name No Information Encounters Encounter Description Practice Location Reason(s) For Visit Diagnoses Date Provider Providers Copied on Encounter [facility], [address] [place] [address], [id number], tel:[phone] Walk In - [facility] tetanus shot (chief complaint) No Information Regina Mohamud. [address] [place] [address], [id number] [place], [id number] , [place]. tel:[phone] Ofc/Outpt Visit, [address] [facility] Services, [address] [place] [address], [id number], tel:[phone] Walk In - [facility] Injury (chief complaint) Infected abrasionLocal infection of the skin and subcutaneous tissue, unspecified Autumn Coleman. [address] [facility], [id number] [place], [id number] , [place]. tel:[phone] Family History Family Member Type Diagnosis Age At Onset No Information Immunizations Vaccine Date Status Comments Tdap administered Source: [facility] unization Record Payers Payer name Insurance type Covered constitution party ID Kiel esposito(s) Self Pay Ins 09 [id number] Self Pay Ins 09 [id number] Social History Type Description Quantity Date Captured Comments Alcohol Use Details Unknown Caffeine Use Details Unknown Tobacco Use Status Cigarette smoker Smoking Status Current every day smoker Smoking Tobacco Use Details Cigarette: No Details Available Cigarette: No Details Available Sex Male Vital Signs Date / Time: Height Weight BMI Pulse Rate Blood Pressure Temperature Respiratory Rate Body Surface Area Head Circumference Head Circ. Percentile Wt./Bob. Percentile BMI percentile Pulse Ox Inhaled Ox 6:26 PM 76.00 in 87.362 kg (192.60 lbs) 23.4 4 kg/m eter (2) 80 /min 104/67 mm[Hg] 97.80 F 16 /min 96 % Chief Complaint And Reason For Visit From encounter dated '10/21/2018 18:07'. tetanus shot (chief complaint) Reason For Referral Reason For Referral No Information History Of Present Illness Encounter Date Complaint History Of Prese nt Illness tetanus shot Injury The injury occur red on 10/15/2018. Symptoms related to the injury remain unchanged. Mechanism of injury details: [place] and fell and hit his left lucio on the rocks. The patient has an abrasion on the left lucio. The patient denies any aggravating factors. Interventions the patient has tried have not provided any relief. The injury is associated with localized swelling. The patient denies any decreased mobility, fever, joint pain and nausea. Additional information: Yesterday his wound became red, swollen and had increased pain. The lower leg is also swollen. Functional Status Date Functional Assessmen t Pain Score 0/10 Instructions Date Instruction Additional Infor mation Wound cleaned with H ibiclens and water. Bacitracin nonstick bandaging was placed. Since patient has some diffuse swelling down the leg Tubigrip was also placed. Patient should elevate the leg to help with swelling. He needs to change this dressing daily. If symptoms are worsening patient needs to be reevaluated. Symptoms have not fully resolved after antibiotic use he needs to be reevaluated. He is started on Keflex 500 mg 2 tabs by mouth twice a day for 10 days with 0 refills. Addendum:Relies I forgot to ask patient about tetanus status. I called the patient and his last tetanus shot was when he was 31 years old. That was 11 years ago. He needs a tetanus shot. He will come in tomorrow for Tdap. Related to Infected abrasion Assessments Type Assessment Date No Information Patient Care Teams Name Effective Dates (start - stop) Status Members No Information
[2024-05-04 05:39] LABS: Basophils Percent Auto 0.4 % (0.2-1.2); Eosinophils Percent Auto 0.1 % (0-4.4); Hematocrit 42.2 % (42.0-52.0); Hemoglobin 14.6 g/dL (14.0-18.0); Immature Granulocyte Absolute 0.03 K/mm3 (0.00-0.031); Immature Granulocyte Percent A 0.4 % (0-0.5); Lymphocytes Absolute Auto 0.52 K/mm3 (0.9-3.2); Lymphocytes Percent Auto 6.7 % (18.3-44.2); Mean Corpuscular HGB Conc 34.6 g/dl (32-36); Mean Corpuscular Hemoglobin 30.9 pg (26-34); Mean Corpuscular Volume 89.4 fl (80-100); Monocytes Absolute Auto 0.8 K/mm3 (0.1-0.6); Monocytes Percent Auto 10.5 % (2.6-8.5); Neutrophils Absolute Auto 6.3 K/mm3 (1.3-6.7); Neutrophils Percent Auto 81.9 % (45.5-73.1); Platelet Count Result 169 k/mm3 (150-375); Red Blood Count 4.72 M/mm3 (4.6-6.20); Red Cell Distribution Width 13.1 % (11.5-14.5); White Blood Count 7.7 K/mm3 (4.5-10.0)
[2024-05-04 05:51] LABS: Alanine Aminotransferase 140 U/L (6-50); Albumin Level 4.3 g/dL (3.5-5.1); Alkaline Phosphatase 59 U/L (38-126); Anion Gap 13 mmol/L (4-12); Aspartate Amino Transferase 146 U/L (17-59); Bilirubin,Total 1.1 mg/dL (0.2-1.3); Blood Urea Nitrogen 11 mg/dL (9-20); Carbon Dioxide 17 mmol/L (22-30); Chloride 103 mmol/L (98-107); Estimated Glomerular Filt Rate > 60; Glucose 108 mg/dL (65-110); Lipase 90 U/L (23-300); Potassium 4.4 mmol/L (3.4-5.0); Sodium 133 mmol/L (137-145)
[2024-05-04 06:50] VITALS: BP 143/77; PULSE 87; RESP 16; O2SAT 98
--- OUTSIDE RECORDS SUMMARY | 2024-05-04 07:24 | XMS_ITS | Continuity of Care Document ---
Author Organization [facility] Address [address] [facility] [place] [address] Phone Care Team Providers Care Tar Man Name Role Phone Khang Martinez MD Unavailable [...] OFFICE/OUTPA TIENT VISIT, EST [facility], [address], [id number], [place] tel:[phone] [facility] ADD (chief complaint) polycythem ia1 (chief complaint) fatigue1 (chief complaint) PolycythemiaAttenti on and concentration deficitTesticular hypogonadismFatigue 4 Juan Quiñonez. [address] [facility] [place], [id number] , [place]. tel:[phone] [facility], [address], [place], [place], [id number], [place] tel:[phone] [facility] No Information 4 Juan Quiñonez. [address], [place], [place], [id number] , [place]. [phone] OFFICE/OUTPA TIENT VISIT, [facility], [address], [place], [place], [id number], [place] tel:[phone] [facility] polycythem ia1 (chief complaint) HLP (chief complaint) PolycythemiaMixed hyperlipidemiaFatig ue 4 Juan Quiñonez. [address], [place], [place], [id number] , [place]. tel:[phone] PREV VISIT, [facility], AGE 40-64 [facility], [address], [place], [place], [id number], [place] tel:[phone] [facility] physical (chief complaint) Encounter for general adult medical exam w abnormal findingsAttention and concentration deficitSeborrheic keratosisEpidermal cystPlantar fascial fibromatosis 4 Juan Quiñonez. [address], [place], [place], [id number] , [place]. [phone] OFFICE/OUTPA TIENT VISIT, [facility], [address], [place], [place], [id number], [place] tel:[phone] [facility] ADD (chief complaint) shoulder pain1 (chief complaint) Attention and concentration deficitPain in left shoulder 4 Juan Quiñonez. [address], [place], [place], [id number] , [place]. [phone] OFFICE/OUTPA TIENT VISIT, [facility], [address], [place], [place], [id number], [place] tel:[phone] [facility] ADD (chief complaint) toe fungus1 (chief complaint) gastric ulcer1 (chief complaint) Attention and concentration deficitPain in left footDermatophytic onychiaChronic or unspecified gastric ulcer with perforation 3 Juan Quiñonez. [address], [place], [place], [id number] , [place]. tel:[phone] Family History Family Member Type Diagnosis Age At Onset Father Problem Alive and well Mother Problem Alive and well Brother Problem Alive and well Payers Payer name Insurance type Covered libertarian ID Authoriza tion(s) No Information Social History [...] -[facility] Service Providers : Molasses Preparer (related to Plantar fascial fibromatosis) ordered Referral Referred To: Carlos Broderick [address] [place] [address], [phone] Ordered: Referrals: Carlos Broderick. Evaluate and treat ordered Referral Referred To: Susy Odonnell [address] [facility]
Mikhail Iniguez [place], [place], [phone] Ordered: Referrals: [facility] Providers : Molasses Preparer. Susy Odonnell. Evaluate and treat ordered Appointment Sarbjit Anthony BOOKED History Of Present Illness Encounter Date Complaint History Of Prese nt Illness ADD Patient has ADD. Patient has inattentive type. Patient feels scatterbrained. Patient feel poor focus and difficulty completing tasks. Patient states that Adderall is helping with symptoms. Patient feels more focused. Pt feels more energy. Patient denies any headache, dry mouth, headache, chest pain. Patient denies any appetite loss. polycythemia1 Pt has polycythe angel. Pt still on testosterone on his own without a prescription Pt denies any urinary symptoms Pt has not done repeat lab yet fatigue1 Pt c/o fatigue a nd he does snore Pt is noncompliant with sleep study HLP Pt has mildly hi gh TG [...] and slightly tender .Pt denies any paresthesia. ADD Patient has ADD. Patient has inattentive [...] feels poorly focused again around 2 pm shoulder pain1 Pt c/o persisten t left shoulder pain for several months Pt denies any injury Pt notices pain when he tries to lift left shoulder pass 45 degree. Pt denies any neck pain or any radiculopathy. Pt denies any left arm numbness or tingling or weakness. ADD Pt has been havi ng focus [...] able to complete task much more easily toe fungus1 Pt has toenail f ungus and also chronic left heel pain Pt denies any radiation of pain to plantar surface and he denies any numbness or tingling. pt states the pain around heel is very sharp and is worse in the morning but gets better towards later of the day. Pt denies any injury. gastric ulcer1 Pt has history o f perforated gastric ulcer s/p surgery many years ago. Pt denies any abd pain or GERd. Instructions Date Instruction Additional Infor kelvin No Information Assessments Type Assessment Date assessment Polycythemia assessment Attention and concentration defi cit assessment Testicular hypogonadism 024 assessment Fatigue Mental Status Date Cognitive Assessment Orientation - Lamoni ed to time, place, person, situation.
--- OUTSIDE RECORDS SUMMARY | 2024-05-04 07:24 | XMS_ITS | Continuity of Care Document ---
Author Organization [facility] Address [address] [place] [phone] Phone Care Team Providers Care Conditioner Tumbler Name Role Phone Oneida Tapia PA-C Unavailable [...] only) TDAP VACCINE >7 IM Ofc/Outpt Visit, [place] [id number] Advance Directives Directive Yes / No Effective Date File Name No Information Encounters Encounter Description Practice Location Reason(s) For Visit Diagnoses Date Provider Providers Copied on Encounter [facility], [address] [place] [address], [id number], tel:[phone] Walk In - [facility] tetanus shot (chief complaint) No Information Regina Mohamud. [address] [place] [address], [id number] [place], [id number] , [place]. tel:[phone] Ofc/Outpt Visit, [address] [facility], [address] [place] [address], [id number], tel:[phone] Walk In - [facility] Injury (chief complaint) Infected abrasionLocal infection of the skin and subcutaneous tissue, unspecified Autumn Coleman. [address] [facility], [id number] [place], [id number] , [place]. tel:[phone] Family History Family Member Type Diagnosis Age At Onset No Information Immunizations Vaccine Date Status Comments Tdap administered Source: [facility] unization Record Payers Payer name Insurance type Covered republican ID Kiel esposito(s) Self Pay Ins 09 [id number] Self Pay Ins 09 [id number] Social History Type Description Quantity Date Captured [...] of injury details: [place] when he [place]pped and fell and hit [...]
[2024-05-04] MEDS: SODIUM CHLORIDE 0.9% IV 1,000 ML 999 ML IV CONT (07:31)
[2024-05-04] MEDS: ONDANSETRON INJ 4 MG/2 ML VIAL IV PUSH (07:31)
[2024-05-04] MEDS: MORPHINE SULFATE (*CRX) 4 MG/ML INJ IV PUSH (07:31)
[2024-05-04 07:40] VITALS: PULSE 82; RESP 20; TEMP 37.7; O2SAT 95
[2024-05-04 07:57] LABS: Influenza A QL RT-PCR Positive (Negative); Influenza B QL RT-PCR Negative (Negative); RSV RNA, RT-PCR Negative (Negative); SARS-CoV-2 RNA PCR Negative (Negative)
[2024-05-04 08:33] LABS: Add Urine Microscopic? YES; Appearance Urine Clear (Clear); Bacteria Urine None Seen /hpf; Bilirubin Urine Negative (Negative); Blood Urine Negative (Negative); Color Urine Dark Yellow (Yellow); Glucose Urine UA Trace mg/dL (Negative); Ketones Urine 2+ mg/dL (Negative); Leukocyte Esterase Ur Negative LEU/UL (Negative); Mucus Urine Present /lpf; Need Manual Microscopic Reviewed; Nitrate Urine Negative (Negative); Protein Urine 2+ mg/dL (Negative); RBC Urine 0-2 /hpf (0-2); Specific Grav Ur 1.032 (1.001-1.035); Squamous Epithelial Cell Urine None Seen /hpf (Few); WBC Urine 0-5 /hpf (0-3); pH Urine 5.5 (5.0-9.0)
--- NOTE | 2024-05-04 09:23 | ED_ITS ---
HPI - Nausea/Vomiting/Diarrhea General Chief complaint: Nausea/Vomiting/Diarrhea Stated complaint: N/V, cant sleep , cant keep anything down Time Seen by Provider: 05/04/24 07:04 History of Present Illness HPI Narrative: Patient is a 48-year-old male who presents ER with nausea vomiting as well as fatigue. Began feeling ill yesterday and laid in bed all day. Vomiting and diarrhea worsening overnight and came in this morning. No chest pain or chest pressure. Unknown sick contacts. No alleviating factors. Related Data Home Medications ?Medication ?Instructions ?Recorded ?Confirmed ?Last Taken ?Type Aleve 220 mg PO Q8-12H 01/15/24 02/06/24 Unknown History acetaminophen 500 mg PO Q4-6H 01/15/24 02/06/24 Unknown History dextroamphetamine-amphetamine 20 20 mg PO BID 01/15/24 02/06/24 01/15/24 History mg tablet Allergies Allergy/AdvReac Type Severity Reaction Status Date / Time No Known Allergies Allergy Verified 02/05/24 13:52 Review of Systems 2 Review of Systems: All systems reviewed & are unremarkable except as noted in HPI and below Constitutional: Constitutional: Reports no additional constitutional complaints ENT: Reports system reviewed and no additional complaints, except as documented Cardiovascular: Cardiovascular: Reports no additional cardiovascular complaints Respiratory: Respiratory: Reports no additional respiratory complaints [facility] Past Medical History Medical History (Updated 05/04/24 @ 09:24 by Lalito Cronin MD) Perforated bowel Fx phalanges, hand-closed Elbow fracture, left ADHD No pertinent past medical history Surgical History Surgical History (Updated 02/05/24 @ 13:53 by Martin Hi MA) History of excision of lesion 01/24/24 Excision right upper arm sebaceous cyst with 2.5cm intermediate layered wound closure. ( cyst= [id number] ) Excision of left occipital scalp skin lesion with 2.5cm simple wound closure. ( 0.8x0.7cm ) Excision of mid back skin lesion with 3cm intermediate layered wound closure. ( 1.5x1cm ) Dr. Marquez History of colon resection Family History Family History Other Family history non-contributory Social History Social History (Updated 02/05/24 @ 13:54 by Martin Hi MA) Smoking status: Former smoker Second hand tobacco smoke exposure: Yes Smoking end date: 03/18/18 Alcohol intake: current Drinks per week: 4 Substance use: current Substance use type: marijuana Other substance usage details: daily Do You Feel Safe in your Home?: Yes Lack of Transportation: No Lack of Food: Never True Current Housing: I Have Housing Concerned About Future Housing: No Difficulty Paying Gas/Electric Bills: YES Difficulty Paying for Meds: No Currently Unemployed: No Education: High School Diploma/GED Difficulty w/ Childcare or Family Care: No Living arrangements: with family Additional living arrangements comments: with spouse Occupation/Education: occupation 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 HEAD: Normocephalic, atraumatic. EYES: PERRL and EOMI. CHEST: Clear to auscultation. No respiratory distress. HEART: Regular rate and rhythm. Normal peripheral pulses. ABDOMEN: Soft, nontender, nondistended. EXTREMITIES: Normal range of motion. No edema. SKIN: Warm, dry, no rash. NEURO: Alert and oriented x3. PSYCH: Normal mood and affect. Course Course Emergency Course: Influenza positive. Given Zofran and IV fluid. Labs reassuring. Mild transaminitis which is likely from viral GI symptoms. Discharged home with Tamiflu and antiemetics. Vital Signs Vital signs: Vital Signs Temperature 98.6 F 05/04/24 04:42 Pulse Rate 91 05/04/24 04:42 Respiratory Rate 20 05/04/24 04:42 Blood Pressure 147/75 H 05/04/24 04:42 Pulse Oximetry 99 05/04/24 04:42 Oxygen Delivery Room Air 05/04/24 04:42 Temperature 99.9 F H 05/04/24 07:40 Pulse Rate 82 05/04/24 07:40 Respiratory Rate 20 05/04/24 07:40 Blood Pressure 143/77 H 05/04/24 06:50 Pulse Oximetry 95 05/04/24 07:40 Oxygen Delivery Room Air 05/04/24 04:42 MDM - Nausea/Vomiting/Diarrhea Lab Data 05/04/24 05:34 05/04/24 05:34 Labs: Lab Results 05/04/24 05/04/24 05/04/24 Range/Units 05:34 06:40 07:42 WBC 7.7 (4.5-10.0) K/mm3 RBC 4.72 (4.6-6.20) M/mm3 Hgb 14.6 (14.0-18.0) g/dL Hct 42.2 (42.0-52.0) % MCV 89.4 (80-100) fl MCH 30.9 (26-34) pg MCHC 34.6 (32-36) g/dl RDW 13.1 (11.5-14.5) % Plt Count 169 (150-375) k/mm3 MPV 11.0 H (7.4-10.4) fl Immature Gran % (Auto) 0.4 (0-0.5) % Neut % (Auto) 81.9 H (45.5-73.1) % Lymph % (Auto) 6.7 L (18.3-44.2) % [place] % (Auto) 10.5 H (2.6-8.5) % Eos % (Auto) 0.1 (0-4.4) % Baso % (Auto) 0.4 (0.2-1.2) % Lymph # (Auto) 0.52 L (0.9-3.2) K/mm3 [place] # (Auto) 0.8 H (0.1-0.6) K/mm3 Eos # (Auto) 0.0 (0-0.3) K/mm3 Baso # (Auto) 0.0 (0.0-0.1) K/mm3 Abs Immat Gran (auto) 0.03 (0.00-0.031) K/mm3 Absolute Neuts (auto) 6.3 (1.3-6.7) K/mm3 Absolute Nucleated RBC 0.000 (0.0-0.012) K/mm3 Nucleated RBC % 0.0 (0.0-0.2) % Sodium 133 L (137-145) mmol/L Potassium 4.4 (3.4-5.0) mmol/L Chloride 103 (98-107) mmol/L Carbon Dioxide 17 L (22-30) mmol/L Anion Gap 13 H (4-12) mmol/L BUN 11 D (9-20) mg/dL Creatinine 0.70 (0.7-1.3) mg/dL Estim Creat Clear Calc Not Reportable Estimated GFR > 60 (59 - ) Glucose 108 (65-110) mg/dL Calcium 9.0 (8.4-10.2) mg/dL Total Bilirubin 1.1 (0.2-1.3) mg/dL AST 146 H (17-59) U/L ALT 140 H (6-50) U/L Alkaline Phosphatase 59 (38-126) U/L Total Protein 8.0 (6.3-8.2) g/dL Albumin 4.3 (3.5-5.1) g/dL Lipase 90 (23-300) U/L Urine Color Dark yellow (Yellow) Urine Appearance Clear (Clear) Urine pH 5.5 (5.0-9.0) Ur Specific [place] 1.032 (1.001-1.035) Urine Protein 2+ H (Negative) mg/dL Urine Glucose (UA) Trace H (Negative) mg/dL Urine Ketones 2+ H (Negative) mg/dL Ur Blood (Man) Negative (Negative) Urine Nitrate Negative (Negative) Urine Bilirubin Negative (Negative) Urine Urobilinogen 1.0 (<2.0) mg/dL Add Ur Microanalysis Reviewed Leukocyte Esterase Rfl Negative (Negative) OSCAR/UL Urine RBC 0-2 (0-2) /hpf Urine WBC 0-5 (0-3) /hpf Ur Squamous Epith Cells None seen (Few) /hpf Urine Bacteria None seen /hpf Urine Casts 3-5 Urine Mucus Present /lpf Influenza A (RT-PCR) Positive A (Negative) Influenza B (RT-PCR) Negative (Negative) RSV (RT-PCR) Negative (Negative) SARS-CoV-2 RNA (RT-PCR) Negative (Negative) Discharge Plan Discharge Clinical Impression: Influenza A, Vomiting Patient Disposition: Home, Self-Care Condition: Stable Instructions: Influenza (ED) Additional Instructions: Please drink plenty of fluids at home. Return to the emergency department if you develop high fevers, have persistent severe abdominal pain, or have bloody stools or vomit, as these could be signs of a more serious medical emergency. Return to the emergency department if you are unable to keep down liquids because of severe nausea/vomiting. Patient Language: Ukrainian Prescriptions: New oseltamivir 75 mg capsule 75 mg PO BID Qty: 10 0RF promethazine 25 mg tablet 25 mg PO Q6H PRN (Reason: nausea and vomiting) Qty: 12 0RF No Action Aleve 220 mg PO Q8-12H dextroamphetamine-amphetamine 20 mg tablet 20 mg PO BID Patient Comments: PATIENT TAKES 20MG IN MORNING AND 10MG IN THE AFTERNOON acetaminophen 500 mg PO Q4-6H Follow-up/Referrals: Khang Martinez MD [Primary Care Provider] - 1 Week
[2024-05-04 09:36] VITALS: BP 144/90; PULSE 90; RESP 14; O2SAT 99
== END 2024-05-04 09:36 | disposition home or self-care (01) ==
PROVIDERS: Emergency Medicine; Emergency Provider Emergency Medicine; PCP Emergency Medicine
DX: J10.1 Influenza due to other identified influenza virus with other respiratory manifestations (principal); R11.2 Nausea with vomiting, unspecified; Z20.822 Contact with and (suspected) exposure to COVID-19; F90.9 Attention-deficit hyperactivity disorder, unspecified type
CPT/HCPCS: 36415; 80053; 81001; 83690; 85025; 87637; 96361; 96374; 96375; 99284; J2270; J2405; J7030

== ENCOUNTER 2025-01-04 10:08 | Outpatient (CLI) | payer OTHER, SELFPAY ==
--- NOTE | ~2025-01-04 | US_ITS ---
EXAMINATION: US soft tissue LE RT, 01/04/2025 10:21 CDT HISTORY: nodule right outer thigh Comparison: None Technique: Aguila-scale and color Doppler images were obtained. Findings: Correlating with the palpable area there is no abnormal mass or mass effect identified. There is no abnormal flow IMPRESSION: Unremarkable exam. If symptoms persist correlate with CT or MRI. Reviewed, dictated and finalized at location P.
== END 2025-01-04 10:09 | disposition home or self-care (01) ==
LOC: MICIMG 10:09
PROVIDERS: PCP Family Medicine
DX: R22.41 Localized swelling, mass and lump, right lower limb (principal)
CPT/HCPCS: 76882

== ENCOUNTER 2025-01-12 00:46 | Day surgery (SDC) | payer OTHER, SELFPAY ==
[2024-08-28 14:00] VITALS: BMI 28.8
[2025-01-04 09:59] VITALS: BMI 28.8
[2025-01-12 08:23] VITALS: BP 126/75; PULSE 72; RESP 18; TEMP 36.3; O2SAT 97
[2025-01-12] MEDS: LACTATED RINGERS 1,000 ML 150 ML IV CONT (08:34)
--- NOTE | 2025-01-12 09:06 | P.PNAN_ITS ---
Anes - Initial Pre Proc Eval Procedure: Operation Date: 01/12/25 09:30 Proposed Procedures p Screening Colonoscopy - Linwood Johnson DO Date/Time: 01/12/25 09:06 Surgeon: Linwood Johnson DO Pre Op Diagnosis: Neoplasm screening Patient Data Age: 49 Gender: M Height: 1.91 m Weight: 102.7 kg Last Vital Signs Temp 97.4 F L 01/12/25 08:23 Pulse 72 01/12/25 08:23 Resp 18 01/12/25 08:23 BP 126/75 01/12/25 08:23 Pulse Ox 97 01/12/25 08:23 O2 Del Method Room Air 01/12/25 08:23 Allergies Allergy/AdvReac Type Severity Reaction Status Date / Time No Known Allergies Allergy Verified 01/12/25 08:22 Home Medications ?Medication ?Instructions ?Recorded ?Confirmed ?Type dextroamphetamine-amphetamine 20 20 mg PO .COMPLEX #45 tabs 12/18/24 01/12/25 Rx mg tablet Patient hx anesthesia problems: none Family hx anesthesia problems: none Results Review: All pre-operative results and documents have been reviewed as part of the pre- operative evaluation. [facility] Past Medical History Medical History Perforated bowel Fx phalanges, hand-closed Elbow fracture, left ADHD No pertinent past medical history Surgical History Surgical History History of excision of lesion 01/24/24 Excision right upper arm sebaceous cyst with 2.5cm intermediate layered wound closure. ( cyst= [id number] ) Excision of left occipital scalp skin lesion with 2.5cm simple wound closure. ( 0.8x0.7cm ) Excision of mid back skin lesion with 3cm intermediate layered wound closure. ( 1.5x1cm ) Dr. Marquez History of colon resection Family History Family History Other Family history non-contributory Social History Social History Smoking status: Former smoker Tobacco type: cigarettes Second hand tobacco smoke exposure: Yes Smoking end date: 03/18/18 Alcohol intake: current Drinks per week: 4 Substance use: current Substance use type: marijuana Other substance usage details: daily Last use: daily MJ Do You Feel Safe in your Home?: Yes Lack of Transportation: No Lack of Food: Never True Current Housing: I Have Housing Concerned About Future Housing: No Difficulty Paying Gas/Electric Bills: YES Difficulty Paying for Meds: No Currently Unemployed: No Education: High School Diploma/GED Difficulty w/ Childcare or Family Care: No Living arrangements: with family Additional living arrangements comments: with spouse Occupation/Education: occupation 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 ) poor dentition Neurological: alert and oriented Last oral intake: >/= 8 hours ASA classification: II Emergent: no Anesthetic plan: proceed Anesthesia type and monitoring: general GIVS and standard monitoring Results Review: All pre-operative results and documents have been reviewed as part of the pre- operative evaluation. ETOH use, 2 drinks/day, cannabis daily 2-3 gms per pt, smoked at 4 am, ASA recent recs are for cessation 2 hrs prior to sedation. Informed Consent: The patient's anesthetic plan and its attendant risks and benefits were discussed with the patient/family/POA. Questions were solicited and answers provided to the satisfaction of the patient/family/POA.
--- NOTE | 2025-01-12 09:50 | PM.IMHP ---
H&P: HPI History of Present Illness Date/Time: 01/12/25 09:50 Chief Complaint: Screening for colorectal cancer Narrative: 49-year-old man presents for his 1st colonoscopy. He denies any hematochezia or melena. He denies family history of colon cancer. Review of Systems Review of Systems: All systems reviewed & are unremarkable except as noted in HPI and below Constitutional: Constitutional: Denies chills, Denies fever(s), Denies headache(s) and Denies weight loss Eyes: Eyes: Denies change in vision ENT: Denies dizziness, Denies headache(s), Denies neck mass and Denies throat swelling Cardiovascular: Cardiovascular: Denies chest pain, Denies lightheadedness and Denies dyspnea Respiratory: Respiratory: Denies cough, Denies dyspnea and Denies wheezing Gastrointestinal: Gastrointestinal: Denies abdominal pain, Denies change in bowel habits, Denies nausea and Denies vomiting Genitourinary: Genitourinary: Denies hematuria and Denies dysuria Musculoskeletal: Musculoskeletal: Reports as per HPI Integumentary/Breasts: Skin/Breast: Reports as per HPI Neurologic: Denies dizziness and Denies headache(s) Allergic/Immunologic: Allergic/Immunologic: Denies throat swelling and Denies wheezing PMFSH Past Medical History Medical History Perforated bowel Fx phalanges, hand-closed Elbow fracture, left ADHD No pertinent past medical history Surgical History Surgical History History of excision of lesion 01/24/24 Excision right upper arm sebaceous cyst with 2.5cm intermediate layered wound closure. ( cyst= [id number] ) Excision of left occipital scalp skin lesion with 2.5cm simple wound closure. ( 0.8x0.7cm ) Excision of mid back skin lesion with 3cm intermediate layered wound closure. ( 1.5x1cm ) Dr. Marquez History of colon resection Family History Family History Other Family history non-contributory Social History Social History Smoking status: Former smoker Tobacco type: cigarettes Second hand tobacco smoke exposure: Yes Smoking end date: 03/18/18 Alcohol intake: current Drinks per week: 4 Substance use: current Substance use type: marijuana Other substance usage details: daily Last use: daily MJ Do You Feel Safe in your Home?: Yes Lack of Transportation: No Lack of Food: Never True Current Housing: I Have Housing Concerned About Future Housing: No Difficulty Paying Gas/Electric Bills: YES Difficulty Paying for Meds: No Currently Unemployed: No Education: High School Diploma/GED Difficulty w/ Childcare or Family Care: No Living arrangements: with family Additional living arrangements comments: with spouse Occupation/Education: occupation 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 Gender identity (if verbalized by the patient): Male Spiritual care concerns: No Meds Home Medications and Allergies Home Medications ?Medication ?Instructions ?Recorded ?Confirmed ?Type dextroamphetamine-amphetamine 20 20 mg PO .COMPLEX #45 tabs 12/18/24 01/12/25 Rx mg tablet Allergies Allergy/AdvReac Type Severity Reaction Status Date / Time No Known Allergies Allergy Verified 01/12/25 08:22 Vital Signs Vital Signs - 24 hr 01/12/25 08:23 Temperature 97.4 F L Pulse Rate 72 Respiratory Rate 18 Blood Pressure 126/75 Pulse Oximetry 97 Oxygen Delivery Room Air Exam Const: General: no acute distress and alert Orientation/consciousness: patient oriented x3 HENMT: Head: normocephalic and atraumatic Ears: hearing grossly normal bilaterally Face/Nose/Sinus: Normal nares present Mouth: Yes Normal oral and palatal mucosa present Eyes: Periorbital: periorbital findings normal Sclera: sclerae normal EOM: EOMs intact bilaterally Neck: Neck: normal visual inspection, no lymphadenopathy and trachea midline Chest: Chest palpation & inspection: normal inspection of the chest Resp: Effort & Inspection: normal respiratory effort Auscultation: clear to auscultation bilaterally Cardio: Jugular venous distension: no JVD Rate: regular rate Rhythm: regular rhythm Heart sounds: S1 normal heart sound present and S2 normal heart sound present Peripheral pulses: Peripheral pulses 2+ throughout GI: Inspection: normal to inspection GI Palp: Yes Soft to palpation, No Tenderness to palpation present (GI), No Guarding due to palpation present (GI) and No Rebound tenderness present Percussion: Yes normal to percussion Auscultation: normal bowel sounds : General: Yes no CVA tenderness Back/Spine/Pelvis: Back: no CVA tenderness Neuro: General: patient oriented x3, no focal motor deficits and CN's II-XI intact bilaterally Cognition (Neuro): normal cognition Speech: normal speech Motor exam (neuro): 5/5 motor strength present throughout Extrem: General: capillary refill normal and no clubbing, cyanosis or edema Assessment and Plan Assessment and plan (1) Encounter for screening for malignant neoplasm of colon: Code(s): Z12.11 - Encounter for screening for malignant neoplasm of colon Status: Acute Assessment and Plan: I have recommended colonoscopy. I have discussed the procedure, risks, benefits, and alternatives. Questions were answered. Patient is agreeable to proceed.
[2025-01-12 10:11] VITALS: BP 94/68; PULSE 74; RESP 18; O2SAT 93
--- NOTE | 2025-01-12 10:12 | S_PTH ---
PATIENT: Sarbjit Anthony LOC: [facility] U#:[id number] AGE/SX: 49/M ROOM: RE01/12/[address]: Linwood Johnson DO : 1975 BED: DIS: 01/12/2025 SPEC #: [id number] RECD: 01/12/25 10:26 STATUS: BREANNA REQ #: [id number] MICHAEL: 01/12/25 10:[address]: Linwood Johnson DEPT: [facility] Surgical RECD BY: Valdemar Maher ENTERED: 01/12/25 10:27 SP TYPE: Surgical OTHR DR: Jefferson Olvera MD Tissues: A - Colon Polypectomy Procedures: Hematoxylin and Eosin Stain Gross and Microscopic Level 4
[2025-01-12 10:21] VITALS: BP 115/77; PULSE 74; RESP 13; O2SAT 100
== END 2025-01-12 10:35 | disposition home or self-care (01) ==
PROVIDERS: PCP Family Medicine; Visit Provider Surgery
PROC: 0DJD8ZZ Inspection of Lower Intestinal Tract, Via Natural or Artificial Opening Endoscopic (ICD-10-PCS; CPT 45378; principal; 2025-01-12 09:30)
DX: Z12.11 Encounter for screening for malignant neoplasm of colon (principal); D12.8 Benign neoplasm of rectum; F90.9 Attention-deficit hyperactivity disorder, unspecified type; F12.90 Cannabis use, unspecified, uncomplicated; Z98.890 Other specified postprocedural states; Z90.49 Acquired absence of other specified parts of digestive tract; Z87.891 Personal history of nicotine dependence; Z87.19 Personal history of other diseases of the digestive system
CPT/HCPCS: 45380; 88305; J2704; J7120